=== PATIENT | female | born 1940 | race Caucasian/White ===

== ENCOUNTER 2021-01-22 06:46 | Observation (INO) | payer MEDICARE ==
[~2021-01-22] VITALS: Ht 157.5 cm; Wt 66.7 kg
[~2021-01-22 06:46] MED LIST: ASPIRIN325 MG PO; LEVOTHYROXINE100 MC1 PO; LEVOTHYROXINE50 MCG PO; NORCO 7.5-3251 EACH PO
[2021-01-22] MEDS ORDERED: DEXAMETHASONE SOD PHOS 10 MG/1 ML VIAL ONE (07:40)
[2021-01-22] MEDS ORDERED: CELECOXIB 200 MG CAP ONE (07:40)
[2021-01-22] MEDS ORDERED: GABAPENTIN 300 MG CAP ONE (07:40)
[2021-01-22] MEDS ORDERED: SODIUM CHLORIDE 0.9% 50ML 100 ML ONE (07:41)
[2021-01-22] MEDS ORDERED: ROPIVACAINE 246.25 MG, EPINEPHRINE HCL 1:1000 1ML 0.5 MG, CLONIDINE HCL 0.08 MG, KETORO... INJ ONE ×5 (08:00)
[2021-01-22] MEDS ORDERED: TRANEXAMIC ACID 1,000 MG/10 ML ML ONE ×2 (09:20→09:38)
[2021-01-22] MEDS ORDERED: Vancomycin IV 1,000 MG ONE (09:21)
[2021-01-22] MEDS ORDERED: SODIUM CHLORIDE 0.9% 500ML 500 ML ONE (09:23)
[2021-01-22] MEDS ORDERED: ONDANSETRON HCL INJ 2MG/ML 2ML 2 MG/ML VIAL IV PRN (11:15)
[2021-01-22] MEDS ORDERED: KETOROLAC TROMETHAMINE 30 MG/ML VIAL IV PRN (11:15)
[2021-01-22] MEDS ORDERED: DIPHENHYDRAMINE HCL INJ 50 MG/ML VIAL IV PRN (11:15)
[2021-01-22] MEDS ORDERED: SODIUM CHLORIDE 0.9% 1000ML 1,000 ML IV SCH (11:15)
[2021-01-22] MEDS ORDERED: ACETAMINOPHEN 650 MG SUPP PR PRN (11:15)
[2021-01-22] MEDS ORDERED: HYDROCODONE/APAP 7.5MG-325MG 1 EA TAB PO PRN (11:15)
[2021-01-22] MEDS ORDERED: HYDROCODONE/APAP 5MG-325MG TAB PO PRN (11:15)
[2021-01-22] MEDS ORDERED: DOCUSATE SODIUM 100 MG CAP PO PRN (11:15)
[2021-01-22] MEDS ORDERED: MORPHINE SULFATE INJ 4 MG/ML INJ 1ML ONE (11:51)
[2021-01-22 12:28] VITALS: BP 134/77
[2021-01-22 12:37] VITALS: BP 134/77
[2021-01-22] MEDS ORDERED: Cefazolin 1 GM in SODIUM CHLORIDE 0.9% 50ML 50 ML IV SCH (14:00)
[2021-01-22 15:13] VITALS: BP 124/71
[2021-01-22] MEDS ORDERED: ASPIRIN 325 MG TAB PO SCH (17:00)
[2021-01-22] MEDS ORDERED: CELECOXIB 100 MG CAP PO SCH (17:00)
[2021-01-22] MEDS ORDERED: ZOLPIDEM TARTRATE 5 MG TAB PO PRN (21:00)
[2021-01-23] MEDS ORDERED: ACETAMINOPHEN 1000 MG/100 ML IV PRN (11:15)
== END 2021-01-22 18:10 | disposition home health service (06) ==
LOC: OR 06:46 → PACU V 11:54 → MED/SURG 12:31
PROVIDERS: ADMIT Specialist; ATTEND Specialist
DX: M17.12 Unilateral primary osteoarthritis, left knee (principal); Z88.5 Allergy status to narcotic agent; E03.9 Hypothyroidism, unspecified; K21.9 Gastro-esophageal reflux disease without esophagitis; K44.9 Diaphragmatic hernia without obstruction or gangrene; D64.9 Anemia, unspecified; I10 Essential (primary) hypertension; Z96.651 Presence of right artificial knee joint; Z01.812 Encounter for preprocedural laboratory examination; Z01.818 Encounter for other preprocedural examination; Z20.822 Contact with and (suspected) exposure to COVID-19
CPT/HCPCS: 27447; 71046; 73560; 86850; 86900; 93005; 97110; 97116; 97161; 97530; C1713; G0378; J0171; J0690; J1100; J1885; J2270; J2795; J3370; J7040; U0002; 86920